=== PATIENT | female | born 1980 | race Caucasian/White ===

== ENCOUNTER 2016-12-20 09:31 | Emergency (ER) | payer BC ==
[2016-12-20] MEDS ORDERED: Sodium Chloride 0.9% 1000 ML 1,000 ML IV STA (09:43)
[2016-12-20] MEDS ORDERED: Sodium Chloride 0.9% 1000 ML 1,000 ML ONE (09:50)
[2016-12-20 10:28] LABS: ALBUMIN 3.9 g/dL (3.4-5.0); ALKALINE PHOSPHATASE 78 U/L (46-116); ANION GAP 12.1 MEQ/L (5-15); BLOOD UREA NITROGEN 6 mg/dL (9-20); CHLORIDE 103 mEq/L (98-107); Carbon Dioxide 28.7 mEq/L (21-32); Glucose 129 MG/DL (70-110); MAGNESIUM 1.4 mg/dL (1.8-2.4); SGOT/AST 30 U/L (15-37); SGPT/ALT 15 U/L (12-78); SODIUM 142 mEq/L (136-145); Total Protein 7.1 gm/dL (6.4-8.2)
[2016-12-20 10:29] LABS: ADD URINE CULTURE? YES (NO); Bacteria MODERATE /HPF (NEGATIVE); Bilirubin SMALL (NEGATIVE); Blood 50 Ery/ul (0-5); COMPLETE URINE MICROSCOPIC? YES; Collection Type VOID; Epithelial Cells MODERATE /HPF (FEW); Glucose TRACE mg/dL (NEGATIVE); Leukocyte Esterase 1+ (NEGATIVE); Mucus MODERATE /HPF (NEGATIVE)
[2016-12-20 10:29] LABS: BASOPHIL % 0.8 % (0.0-0.4); Eosinophil % 0.8 % (0.00-5.0); Granulocytes % 76.3 % (36.0-66.0); Lymphocytes % 16.8 % (24.0-44.0); Mean Cell Volume 84.8 fl (78-100); Mean Corpuscular Hemoglobin 29.5 pg (26-32); Mean Platelet Volume 11.1 fl (6-9.5); Monocytes % 5.3 % (0.0-12.0); Platelet Count 240 K/mm3 (150-450); Red Blood Count 4.95 M/mm3 (4.1-5.4); Red Cell Distribution Width 12.8 % (11.5-14.0); White Blood Count 6.3 K/mm3 (4.0-10.5)
[2016-12-20 10:40] LABS: Potassium 2.3 mEq/L (3.5-5.1)
--- NOTE | 2016-12-20 10:53 | ERPHSYRPT ---
- History of Present Illness Time Seen by Provider: 12/20/16 10:51 Source: patient, family Exam Limitations: no limitations Patient Subjective Stated Complaint: pt states at 0900 she was in the shower and began having numbness to right side of her body and her hands drawing up. pt states she became light headed at this time. Triage Nursing Assessment: pt pink, warm, dry. pt ambulated into ER without difficulty. pt alert and oriented x3. speach wnl. Physician History: pt states at 0900 she was in the shower and began having numbness to right side of her body and her hands drawing up. pt states she became light headed at this time. denies same types of symptoms in past. Timing/Duration: today Severity: moderate Associated Symptoms: denies symptoms Allergies/Adverse Reactions: Penicillins Allergy (Verified 12/20/16 09:46) Home Medications: Amlodipine Besylate 5 mg PO DAILY 12/20/16 [History] Potassium Chloride 20 Meq [Klor-Con 20 MEQ] 20 meq PO BID 12/20/16 [History] Hx Tetanus, Diphtheria Vaccination/Date Given: Yes (up to date) Hx Influenza Vaccination/Date Given: No Hx Pneumococcal Vaccination/Date Given: No Immunizations Up to Date: Yes - Review of Systems Constitutional: Weakness, No Fever, No Chills Eyes: No Symptoms Ears, Nose, & Throat: No Symptoms Respiratory: No Cough, No Dyspnea Cardiac: No Chest Pain, No Edema, No Syncope Abdominal/Gastrointestinal: No Abdominal Pain, No Nausea, No Vomiting, No Diarrhea Genitourinary Symptoms: No Dysuria Musculoskeletal: No Back Pain, No Neck Pain Skin: No Rash Neurological: Focal Weakness, Parasthesia, No Dizziness, No Seizure, No Sensory Changes Psychological: No Symptoms Endocrine: No Symptoms All Other Systems: Reviewed and Negative - Past Medical History Pertinent Past Medical History: Yes Cardiac History: Hypertension - Past Surgical History Past Surgical History: Yes Other Surgical History: ablation - Social History Smoking Status: Never smoker Exposure to second hand smoke: No Drug Use: none Patient Lives Alone: No - Female History Hx Last Menstrual Period: ablation - Nursing Vital Signs Nursing Vital Signs: Initial Vital Signs Temperature 97.6 F 12/20/16 09:35 Pulse Rate 74 12/20/16 09:35 Respiratory Rate 18 12/20/16 09:35 Blood Pressure 137/93 12/20/16 09:35 O2 Sat by Pulse Oximetry 97 12/20/16 09:35 Pain Scale Pain Intensity 0 - Physical Exam General Appearance: no apparent distress, alert Eye Exam: PERRL/EOMI, eyes nml inspection Ears, Nose, Throat Exam: normal ENT inspection, TMs normal, pharynx normal, moist mucous membranes Neck Exam: normal inspection, non-tender, supple, full range of motion Respiratory Exam: normal breath sounds, lungs clear, No respiratory distress Cardiovascular Exam: regular rate/rhythm, normal heart sounds, normal peripheral pulses Gastrointestinal/Abdomen Exam: soft, normal bowel sounds, No tenderness, No mass Back Exam: normal inspection, normal range of motion, No CVA tenderness, No vertebral tenderness Extremity Exam: normal inspection, normal range of motion, pelvis stable Neurologic Exam: alert, oriented x 3, cooperative, normal mood/affect, nml cerebellar function, nml station & gait, sensation nml, No motor deficits Skin Exam: normal color, warm, dry, No rash Lymphatic Exam: No adenopathy SpO2: 97 Oxygen Delivery: Room Air - Course Nursing assessment & vital signs reviewed: Yes Ordered Tests: Active Orders 24 hr Category Date Time Status Deckhand Maintenance STAT Care 12/20/16 11:25 Active IV Insertion STAT Care 12/20/16 09:54 Active CBC W DIFF Stat Lab 12/20/16 09:50 Completed CMP Stat Lab 12/20/16 09:50 Completed CULTURE,URINE Stat Lab 12/20/16 09:44 Received MAGNESIUM Stat Lab 12/20/16 09:50 Completed Potassium Stat Lab 12/20/16 13:24 Completed TROPONIN Stat Lab 12/20/16 09:50 Completed UA W/ MICROSCOPIC Stat Lab 12/20/16 09:44 Completed Urine Triage Profile Stat Lab 12/20/16 09:44 Completed Medication Summary Discontinued Medications Generic Name Dose Route Start Last Admin Trade Name Freq PRN Reason Stop Dose Admin Ceftriaxone Sodium 1,000 mg 12/20/16 11:47 12/20/16 11:55 Rocephin 1000 Mg Inj IM 12/20/16 11:48 1,000 mg STAT ONE Administration Ceftriaxone Sodium Confirm 12/20/16 11:50 Rocephin 1000 Mg Inj Administered 12/20/16 11:51 Dose 1,000 mg .ROUTE .STK-MED ONE Sodium Chloride 1,000 mls @ 999 mls/hr 12/20/16 09:43 12/20/16 09:51 Sodium Chloride 0.9% 1000 Ml IV 12/20/16 10:43 999 mls/hr .Q1H1M STA Administration Sodium Chloride Confirm 12/20/16 09:50 Sodium Chloride 0.9% 1000 Ml Administered 12/20/16 09:51 Dose 1,000 mls @ ud .ROUTE .STK-MED ONE Potassium Chloride 40 meq/ 274 mls @ 67 mls/hr 12/20/16 11:00 12/20/16 11:09 Lidocaine HCl 4 ml/ Sodium IV 12/20/16 15:05 67 mls/hr Chloride NOW ONE Administration Lidocaine HCl Confirm 12/20/16 11:51 Xylocaine 1% Hcl 20 Ml Mdv Administered 12/20/16 11:52 Dose 2 ml .ROUTE .STK-MED ONE Magnesium Oxide 400 mg 12/20/16 12:36 12/20/16 13:01 Mag-Ox 400 PO 12/20/16 12:37 400 mg STAT ONE Administration Magnesium Oxide Confirm 12/20/16 13:00 Mag-Ox 400 Administered 12/20/16 13:01 Dose 400 mg .ROUTE .STK-MED ONE Potassium Chloride 40 meq 12/20/16 13:17 12/20/16 13:19 Klor Con 10 Meq PO 12/20/16 13:18 40 meq STAT ONE Administration Potassium Chloride Confirm 12/20/16 13:19 Klor Con 10 Meq Administered 12/20/16 13:20 Dose 40 meq PO .STK-MED ONE Lab/Rad Data: Laboratory Result Diagrams 12/20/16 09:50 12/20/16 13:24 Laboratory Results 12/20/16 12/20/16 12/20/16 Range/Units 13:24 09:50 09:50 WBC (4.0-10.5) K/mm3 RBC (4.1-5.4) M/mm3 Hgb (12.0-16.0) gm/dl Hct (35-47) % MCV (78-100) fl MCH (26-32) pg MCHC (32-36) g/dl RDW (11.5-14.0) % Plt Count (150-450) K/mm3 MPV (6-9.5) fl Gran % (36.0-66.0) % Lymphocytes % (24.0-44.0) % Monocytes % (0.0-12.0) % Eosinophils % (0.00-5.0) % Basophils % (0.0-0.4) % Basophils # (0-0.4) Sodium 142 (136-145) mEq/L Potassium 2.7 L* 2.3 L* (3.5-5.1) mEq/L Chloride 103 (98-107) mEq/L Carbon Dioxide 28.7 (21-32) mEq/L Anion Gap 12.1 (5-15) MEQ/L BUN 6 L (9-20) mg/dL Creatinine 0.83 (0.55-1.30) mg/dl Estimated GFR > 60 ML/MIN Glucose 129 H (70-110) MG/DL Calcium 8.7 (8.5-10.1) mg/dL Magnesium 1.4 L (1.8-2.4) mg/dL Total Bilirubin 0.60 (0.2-1.0) mg/dL AST 30 (15-37) U/L ALT 15 (12-78) U/L Alkaline Phosphatase 78 (46-116) U/L Troponin I < 0.017 (0.000-0.056) ng/ml Serum Total Protein 7.1 (6.4-8.2) gm/dL Albumin 3.9 (3.4-5.0) g/dL Ur Collection Type Urine Color (YELLOW) Urine Appearance (CLEAR) Urine pH (5-6) Ur Specific [place] (1.005-1.025) Urine Protein (Negative) Urine Ketones (NEGATIVE) Urine Blood (0-5) Chance/ul Urine Nitrite (NEGATIVE) Urine Bilirubin (NEGATIVE) Urine Urobilinogen (0-1) mg/dL Ur Leukocyte Esterase (NEGATIVE) Urine Microscopic RBC (0-2) /HPF Urine Microscopic WBC (0-5) /HPF Ur Epithelial Cells (FEW) /HPF Urine Bacteria (NEGATIVE) /HPF Urine Mucus (NEGATIVE) /HPF Urine Glucose (NEGATIVE) mg/dL Urine Opiates Level (NEGATIVE) Ur Methadone (NEGATIVE) Urine Barbiturates (NEGATIVE) Ur Phencyclidine (PCP) (NEGATIVE) Urine Amphetamine (NEGATIVE) U Benzodiazepine Level (NEGATIVE) Urine Cocaine (NEGATIVE) Urine Marijuana (THC) (NEGATIVE) Specimen Received 08/27/17 08/27/17 08/27/17 Range/Units 09:50 09:44 09:44 WBC 6.3 (4.0-10.5) K/mm3 RBC 4.95 (4.1-5.4) M/mm3 Hgb 14.6 (12.0-16.0) gm/dl Hct 42.0 (35-47) % MCV 84.8 (78-100) fl MCH 29.5 (26-32) pg MCHC 34.8 (32-36) g/dl RDW 12.8 (11.5-14.0) % Plt Count 240 (150-450) K/mm3 MPV 11.1 H (6-9.5) fl Gran % 76.3 H (36.0-66.0) % Lymphocytes % 16.8 L (24.0-44.0) % Monocytes % 5.3 (0.0-12.0) % Eosinophils % 0.8 (0.00-5.0) % Basophils % 0.8 (0.0-0.4) % Basophils # 0.05 (0-0.4) Sodium (136-145) mEq/L Potassium (3.5-5.1) mEq/L Chloride (98-107) mEq/L Carbon Dioxide (21-32) mEq/L Anion Gap (5-15) MEQ/L BUN (9-20) mg/dL Creatinine (0.55-1.30) mg/dl Estimated GFR ML/MIN Glucose (70-110) MG/DL Calcium (8.5-10.1) mg/dL Magnesium (1.8-2.4) mg/dL Total Bilirubin (0.2-1.0) mg/dL AST (15-37) U/L ALT (12-78) U/L Alkaline Phosphatase (46-116) U/L Troponin I (0.000-0.056) ng/ml Serum Total Protein (6.4-8.2) gm/dL Albumin (3.4-5.0) g/dL Ur Collection Type VOID Urine Color YELLOW (YELLOW) Urine Appearance HAZY (CLEAR) Urine pH 8.0 (5-6) Ur Specific [place] 1.005 (1.005-1.025) Urine Protein 2+ (Negative) Urine Ketones TRACE (NEGATIVE) Urine Blood 50 (0-5) Chance/ul Urine Nitrite NEGATIVE (NEGATIVE) Urine Bilirubin SMALL (NEGATIVE) Urine Urobilinogen NORMAL (0-1) mg/dL Ur Leukocyte Esterase 1+ (NEGATIVE) Urine Microscopic RBC 5-10 (0-2) /HPF Urine Microscopic WBC 10-15 (0-5) /HPF Ur Epithelial Cells MODERATE (FEW) /HPF Urine Bacteria MODERATE (NEGATIVE) /HPF Urine Mucus MODERATE (NEGATIVE) /HPF Urine Glucose TRACE (NEGATIVE) mg/dL Urine Opiates Level NEG. (NEGATIVE) Ur Methadone NEG. (NEGATIVE) Urine Barbiturates NEG. (NEGATIVE) Ur Phencyclidine (PCP) NEG. (NEGATIVE) Urine Amphetamine NEG. (NEGATIVE) U Benzodiazepine Level NEG. (NEGATIVE) Urine Cocaine NEG. (NEGATIVE) Urine Marijuana (THC) NEG. (NEGATIVE) Specimen Received 12/20/16 1015 - Progress Progress: improved Counseled pt/family regarding: lab results, diagnosis, need for follow-up - Departure Time of Disposition: 15:38 Departure Disposition: Home Clinical Impression: Hypokalemia due to inadequate potassium intake, Hypomagnesemia, Hemihypalgesia Condition: Stable Critical Care Time: Yes Critical Care Time(excluding separately billable procedures): 75-104 minutes Referrals: LUIS SORIANO [Primary Care Provider] - Instructions: Numbness/tingling Additional Instructions: Please follow the instructions given to you. Please take your medication as prescribed if given. If symptoms recur or get worse, come back to the emergency room if you cannot reach your primary care physician, or call your primary care physician for an appointment. Again if your symptoms get worse, come back to the emergency room. Thanks for visiting emergency room, and let us take care of you. Prescriptions: Smz/Tmp Ds Tablet [Bactrim Ds Tablet] 1 udtab PO BID #20 tablet Magnesium Oxide 400 mg [Mag-Ox 400] 400 mg PO BID #60 tablet
[2016-12-20] MEDS ORDERED: Potassium Chloride 40 MEQ/20 ML VIAL 40 MEQ, XYLOCAINE 1% HCL 20 ML MDV*** 4 ML in Sodi... IV ONE (11:00)
[2016-12-20] MEDS ORDERED: Rocephin 1000 MG INJ IM ONE (11:47)
[2016-12-20] MEDS ORDERED: Rocephin 1000 MG INJ ONE (11:50)
[2016-12-20] MEDS ORDERED: XYLOCAINE 1% HCL 20 ML MDV ONE (11:51)
[2016-12-20] MEDS ORDERED: MAG-OX 400 PO ONE (12:36)
[2016-12-20 12:41] VITALS: O2SAT 97
[2016-12-20] MEDS ORDERED: MAG-OX 400 ONE (13:00)
[2016-12-20] MEDS ORDERED: Klor Con 10 MEQ PO ONE ×2 (13:17→13:19)
[2016-12-20 15:11] VITALS: BP 131/87; PULSE 76
== END 2016-12-20 15:40 | disposition home or self-care (01) ==
LOC: ED 09:31
DX: E87.6 Hypokalemia (principal); E83.42 Hypomagnesemia; R20.8 Other disturbances of skin sensation
CPT/HCPCS: 36000; 36415; 80053; 80307; 81000; 83735; 84132; 84484; 85025; 87086; 93041; 96360; 96365; 96366; 96372; 99284; J0696; J3480; A9270-GY